=== PATIENT | female | born 1970 | race African-American/Black ===

== ENCOUNTER 2017-10-04 11:59 | Emergency (ER) | payer SELFPAY ==
[~2017-10-04] VITALS: Ht 165.1 cm; Wt 65.8 kg
[2017-10-04] MEDS ORDERED: Methocarbamol 500mg tab ORAL ONE (12:15)
[2017-10-04] MEDS ORDERED: Acetaminophen 500mg (ES) tab ORAL ONE (12:15)
[2017-10-04] MEDS ORDERED: LIDOCAINE700 M1 TP (12:28)
[2017-10-04] MEDS ORDERED: TYLENOL EXTRA500 MG ORAL (12:28)
[2017-10-04] MEDS ORDERED: ROBAXIN500 MG PO (12:28)
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
[2017-10-04 12:40] VITALS: BP 114/72
== END 2017-10-04 12:41 | disposition home or self-care (01) ==
LOC: EMR 12:17
DX: M62.838 Other muscle spasm (principal); M54.5 Low back pain; Z88.6 Allergy status to analgesic agent
CPT/HCPCS: 99284